=== PATIENT | male | born 1970 | race African-American/Black ===

== ENCOUNTER 2017-01-17 20:10 | Emergency (ER) | payer OTHER ==
[~2017-01-17] VITALS: Ht 185.4 cm; Wt 137.9 kg
[~2017-01-17 20:10] MED LIST: AMOXICILLIN500 MG PO; AMOXICILLIN875 M1 PO; AMOXIL500 MG PO; BLM PO; GEMFIBROZIL600 MG PO; LANTUS SOL100 UNIT/1 SC; LIPITOR20 M2 PO; LOSARTAN POTASS50 MG PO; METFORMIN HCL1000 M1 PO; MULTIVITAMIN1 TAB PO; PERCOCET 5-3251 EACH PO; PREDNISONE10 MG PO; PRINIVIL 5MG5 MG PO; ULTRAM50 M1 PO
--- NOTE | 2017-01-17 22:01 | ED THROAT/DENTAL COMPLAINT ---
History of Present Illness General Chief Complaint: Sore Throat, Dental Pain Stated Complaint: PT HAS AN INFECTED TOOTH ON THE LEFT SIDE Source: patient Exam Limitations: no limitations Vital Signs & Intake/Output Vital Signs & Intake/Output Vital Signs Date Time Temp Pulse Resp B/P Pulse O2 O2 Flow FiO2 Ox Delivery Rate 01/170 142/92 01/17 2039 98.4 84 18 149/101 98 Room Air ED Intake and Output 01/18 0000 01/17 1200 Intake Total 0 Output Total Balance 0 Intake, IV 0 Patient 304 lb Weight Allergies Coded Allergies: NO KNOWN ALLERGIES (05/11/12) Triage Note: PT TO ED C/O TEETH PAIN, BOTH UPPER AND LOWER, ON LEFT SIDE FOR 2 DAYS. HAS APPOINTMENT WITH DENTIST ON 02/12 Triage Nurses Notes Reviewed? yes Onset: Gradual Duration: day(s): (1) Timing: recent history Injury Environment: home Severity: moderate Severity Numbers: 8 No Modifying Factors: none HPI: Patient is a 46-year-old male with history of dental issues presenting to the emergency department should complaining of left lower dental pain that started worsening over the past 1 day. History of pain in the past and was told that he needs to have the tooth pulled. Denies fevers or chills. Denies nausea or vomiting. Has been using Tylenol home without relief. Denies any trauma to the tooth. No ear pain. No recent congestion. (MICHELINE GRIFFIN,KELSIE) Reconcile Medications Amoxicillin 875 MG TABLET 1 TAB PO BID dental infection Atorvastatin Calcium (Lipitor) 20 MG TABLET 1 TAB PO DAILY HEART HEALTH ( Reported) Insulin Glargine,Hum.rec.anlog (Lantus Solostar) 100 UNIT/ML (3 ML) INSULN.PEN 24 UNIT SC 1700 DIABETES (Reported) Losartan Potassium (Cozaar) 50 MG TABLET 1 TAB PO DAILY HIGH BLOOD PRESSURE ( Reported) Metformin HCl 1,000 MG TABLET 1 TAB PO BID DIABETES (Reported) Oxycodone HCl/Acetaminophen (Percocet 5-325 MG Tablet) 5 MG-325 MG TABLET 1 TAB PO Q6P PRN PAIN SCALE 7-10 (SEVERE) (Reported) (DANIEL BURROUGHS,KETURAH Borrero) Past History Travel History Traveled to [place] past 21 day No Medical History Any Pertinent Medical History? see below for history Cardiovascular: hypertension, hyperlipidemia Respiratory: obstructive sleep apnea Endocrine: diabetes History of CDIFF: No Surgical History Surgical History: N Psychosocial History Who do you live with Significant Other What is your primary language Wallisian Tobacco Use: Quit >30 days ago ETOH Use: occasional use Illicit Drug Use: denies illicit drug use Family History Hx Contributory? No (KELSIE LIMA) Review of Systems Review of Systems Constitutional: Reports: no symptoms. Comments Review of systems: See HPI, All other systems negative. Constitutional, no chills fever or weight loss HEENT: No visual changes no sore throat no congestion Cardiovascular: No chest pain Skin, no jaundice no rashes Respiratory: No dyspnea cough sputum or hemoptysis GI: No nausea no vomiting Muscle skeletal: no back pain, no neck pain, Neurologic: No numbness Immunology: No splenectomy or history of AIDS (KELSIE LIMA) Physical Exam Physical Exam General Appearance: well developed/nourished, no apparent distress, alert, awake , comfortable Mouth/Throat: mild erythema noted on the left lower dental line, poor dentition Comments: Well-developed well-nourished person in no acute distress HEENT: Pupils equally round and reactive to light and accommodation. Nose is atraumatic. External auditory canal and Tympanic membranes clear. Pharynx normal. No swelling or edema. Mild swelling noted to the left lower gum line, tender to palpation. No obvious visible dental abscess. Neck: Supple, no lymphadenopathy, normal range of motion without pain or tenderness Cardiovascular: normal JVP Respiratory: No respiratory distress. Extremity: No edema, Neuro: Alert oriented x3, Skin: No appreciable rash on exposed skin, skin is warm and dry. Psych: Mood and affect is normal, memory and judgment is normal. Core Measures ACS in differential dx? No Severe Sepsis Present: No Septic Shock Present: No (KELSIE LIMA) Progress Differential Diagnosis: odontogenic abscess, analy-tonsillar abscess, toothache, chronic dental pain Plan of Care: Current Medications Sig/Rober Start time Last Medication Dose Stop Time Status Admin Ketorolac 60 MG ONCE ONE 01/17 2215 UN[facility]r Tromethamine 01/17 2216 (Toradol) Oxycodone/ 1 TAB ONCE ONE 01/17 2215 [facility]Vr Acetaminophen 01/17 2216 (Percocet) Comments: Patient given IM Toradol and by mouth Percocet arrival for pain. He'll be started on antibiotics and pain medication he will follow-up with his dentist next week. Patient's blood pressure likely elevated secondary to pain. We will recheck manually prior to discharge. See nursing note. (KELSIE LIMA) Departure Departure Time of Disposition: 2201 Disposition: HOME OR SELF CARE Condition: Stable Clinical Impression Primary Impression: Dental infection Secondary Impressions: Hypertension Qualifiers: Hypertension type: essential hypertension Qualified Code: I10 - Essential (primary) hypertension Referrals: JULIA FREEMAN DO (PCP/Family) Additional Instructions: Follow-up with your dentist call Friday to make a sooner appointment. Take amoxicillin as prescribed for dental infection. Take Percocet as prescribed for pain. Also use saltwater gargles. Return for worsening symptoms or concerns. Departure Forms: Customer Survey General Discharge Information (KELSIE LIMA) Departure Prescriptions: Current Visit Scripts Amoxicillin 1 TAB PO BID #20 TAB PA/DRUPAL DEVELOPER Co-Sign Statement Statement: ED Attending supervision documentation- [] I saw and evaluated the patient. I have also reviewed all the pertinent lab results and diagnostic results. I agree with the findings and the plan of care as documented in the PA's/DRUPAL DEVELOPER's documentation. [X] I have reviewed the ED Record and agree with the PA's/DRUPAL DEVELOPER's documentation. [] Additions or exceptions (if any) to the PAs/DRUPAL DEVELOPER's note and plan are summarized below: [] (DANIEL BURROUGHS,KETURAH Borrero)
[2017-01-17] MEDS ORDERED: AMOXICILLIN875 M1 PO (22:04)
[2017-01-17] MEDS ORDERED: PERCOCET 5-3251 EACH PO ×2 (22:04→22:18)
[2017-01-17] MEDS ORDERED: COZAAR50 M1 PO (22:15)
[2017-01-17 22:20] VITALS: BP 142/92
== END 2017-01-17 22:36 ==
LOC: ERH 20:10
DX: K04.7 Periapical abscess without sinus (principal); I10 Essential (primary) hypertension
CPT/HCPCS: 96372; J1885

== ENCOUNTER 2017-03-25 21:07 | Emergency (ER) | payer OTHER ==
[~2017-03-25] VITALS: Ht 185.4 cm; Wt 137.9 kg
[~2017-03-25 21:07] MED LIST changes: +COZAAR50 M1 PO
[2017-03-25 21:17] VITALS: BP 139/79
--- NOTE | 2017-03-25 21:33 | ED UPPER/LOWER EXTREMITY COMPL ---
History of Present Illness General Chief Complaint: Lower Extremity Problems Stated Complaint: LEFT KNEE PAIN PER PT Source: patient, old records Exam Limitations: no limitations Vital Signs & Intake/Output Vital Signs & Intake/Output Vital Signs Date Time Temp Pulse Resp B/P B/P Pulse O2 O2 Flow FiO2 Mean Ox Delivery Rate 03/25 2117 97.3 91 18 139/79 98 Room Air Allergies Coded Allergies: NO KNOWN ALLERGIES (05/11/12) Reconcile Medications Insulin Glargine,Hum.rec.anlog (Lantus Solostar) 100 UNIT/ML (3 ML) INSULN.PEN 24 UNIT SC 1700 DIABETES (Reported) Losartan Potassium (Cozaar) 50 MG TABLET 1 TAB PO DAILY HIGH BLOOD PRESSURE ( Reported) Metformin HCl 1,000 MG TABLET 1 TAB PO BID DIABETES (Reported) Oxycodone HCl/Acetaminophen (Percocet 5-325 MG Tablet) 5 MG-325 MG TABLET 1 TAB PO Q6H PRN PAIN Triage Note: PT TO TRIAGE WITH C/O CHRONIC LEFT DASH PAIN 8/10 PAIN GOT WORSE 2 WEEKS AGO. HX OF FRACTURE A YEAR AGO. PT DENIES RECENT INJURY. VSS. Triage Nurses Notes Reviewed? yes HPI: Patient is a 46 year old male presents complaining of left lower extremity pain worsening over the past 5-6 days. Pain is currently moderate to severe, worsens with movement and palpation. Chronic pain to the left knee/leg s/p injury 10 years ago. Patient was supposed to have emergent surgery for a tibial plateau fracture, but left the hospital prior to his surgery. Patient has been working more over the past couple of weeks. Patient saw his primary care doctor 1 week ago for similar pain, was prescribed Naproxen with no improvement. Patient reports that chronically he has instability in his left knee and will feel the joint shift whne he pivots. Denies recent injury, (CLARIBEL EDWARD) Past History Travel History Traveled to [facility] past 21 day No Medical History Any Pertinent Medical History? see below for history Cardiovascular: hypertension, hyperlipidemia Respiratory: obstructive sleep apnea Endocrine: diabetes History of CDIFF: No Surgical History Surgical History: N Psychosocial History Who do you live with Significant Other What is your primary language [place]ib[place]ian Tobacco Use: Quit >30 days ago Family History Hx Contributory? No (CLARIBEL EDWARD) Review of Systems Review of Systems Constitutional: Denies: chills, fever. Cardiovascular: Denies: chest pain. Gastrointestinal/Abdominal: Denies: abdominal pain. Musculoskeletal: Reports: see HPI. Denies: back pain, neck pain. Skin: Denies: erythema, rash. Neurological/Psychological: Denies: numbness, paresthesia. Hematologic/Endocrine: Denies: bruising, bleeding. Immunological: Reports: no symptoms. (CLARIBEL EDWARD) Physical Exam Physical Exam General Appearance: well developed/nourished, alert, awake Head: atraumatic, normal appearance Eyes: Bilateral: normal appearance. Ears, Nose, Throat: hearing grossly normal Neck: normal inspection, supple, full range of motion Cardiovascular/Respiratory: no respiratory distress Peripheral Pulses: 2+ dorsalis pedis (L) Back: normal range of motion Knee Left: tenderness left proximal tibia. Full range of motion of knee. Pain to left knee increases with active flexion. Foot Left: normal inspection, normal range of motion Neurologic/Tendon: normal sensation, normal motor functions, normal tendon functions Skin: intact, normal color, warm/dry (CLARIBEL EDWARD) Progress Differential Diagnosis: compartment syndrome, contusion, dislocation, DVT, fracture, gout, sprain, tendon injury Plan of Care: Orders Procedure Date/time Status Durable Medical Equipment 03/25 2155 Active Pain chronic in nature. Patient has been working on his feet for long hours recently. Patient with history of left tibial plateau fracture approximately 10 years ago. Suspect that pain secondary to this. No signs of infection or compartment syndrome. Appears stable for discharge. Placed in knee immobilizer and nursing staff. Patient encouraged to follow-up with his primary care provider for further evaluation and possible orthopedic referral. (CLARIBEL EDWARD) Departure Departure Time of Disposition: 2157 Disposition: HOME OR SELF CARE Condition: Stable Clinical Impression Primary Impression: Knee pain, left Qualifiers: Chronicity: chronic Qualified Codes: M25.562 - Pain in left knee; G89.29 - Other chronic pain Referrals: JULIA FEREMAN DO (PCP/Family) Additional Instructions: Follow up with your primary doctor for further evaluation and possible orthopedic referral. Rest, elevate your leg, wear knee immobilizer for support. Return to the ER if decreased range of motion or worsening of symptoms. Departure Forms: Customer Survey General Discharge Information Prescriptions: Current Visit Scripts Oxycodone HCl/Acetaminophen (Percocet 5-325 MG Tablet) 1 TAB PO Q6H PRN PAIN #10 TAB (ARIEL GRIFFIN,CLARIBEL) PA/PROJECT INTERN Co-Sign Statement Statement: ED Attending supervision documentation- [] I saw and evaluated the patient. I have also reviewed all the pertinent lab results and diagnostic results. I agree with the findings and the plan of care as documented in the PA's/PROJECT INTERN's documentation. [X] I have reviewed the ED Record and agree with the PA's/PROJECT INTERN's documentation. [] Additions or exceptions (if any) to the PAs/PROJECT INTERN's note and plan are summarized below: [] (CIRILO BURROUGHS,LIZA Rubin)
[2017-03-25] MEDS ORDERED: PERCOCET 5-3251 EACH PO (22:00)
== END 2017-03-25 22:21 ==
LOC: ERH 21:07
DX: M25.562 Pain in left knee (principal)